=== PATIENT | male | born 1985 | race Caucasian/White ===

== ENCOUNTER 2018-08-22 08:49 | Emergency (ER) | payer BC ==
[2018-08-22] MEDS ORDERED: Lactated Ringers 1,000 ML IV ONE (09:22)
[2018-08-22] MEDS ORDERED: Sodium Chloride 0.9% 10 ML Syringe FLUSH PRN ×2 (09:22→09:29)
[2018-08-22] MEDS ORDERED: Iohexol 350 MG/ML 75 ML Bottle IVPUSH ONE (09:29)
[2018-08-22] MEDS ORDERED: Sodium Chloride 0.9% 100 ML IV SCH (09:30)
--- NOTE | 2018-08-22 09:30 | EDM.PDOC ---
ED HPI GENERAL MEDICAL PROBLEM - General Chief Complaint: Chest Pain Stated Complaint: RIB PAIN Time Seen by Provider: 08/22/18 09:04 Source of Information: Reports: Patient History Limitations: Reports: No Limitations - History of Present Illness INITIAL COMMENTS - FREE TEXT/NARRATIVE: 33-year-old male presents for evaluation and treatment of injuries sustained from a fall. Patient reports that he fell down approximately 1 or 2 stairs last evening. Reports that he was drinking alcohol. He states that he is now experiencing pain to the left upper quadrant, left flank, left mid back and left lower chest. He reports pain with range of motion and pain with deep breathing. Patient denies any head trauma. He denies any headaches, vision changes, nausea , vomiting, epistaxis, loose or missing teeth, neck pain, hematuria. Patient states that he "feels great "other than the left side. Patient reports that he normally drinks daily, about a 6 pack a day. Left Chest Pain Score (Numeric/FACES): 8 - Related Data Allergies Allergy/AdvReac Type Severity Reaction Status Date / Time seasonal allergies Allergy Hives Uncoded 08/22/18 09:00 Home Meds: Home Meds Ascorbic Acid [Vitamin C] 500 mg PO DAILY 08/22/18 [History] Cetirizine [ZyrTEC] 10 mg PO DAILY 08/22/18 [History] Ferrous Sulfate [Iron] 325 mg PO DAILY 08/22/18 [History] Fingolimod HCl [Gilenya] 0.5 mg PO DAILY 08/22/18 [History] Multivitamin [Multivitamins] 1 each PO DAILY 08/22/18 [History] Past Medical History Neurological History: Reports: MS - Past Surgical History Musculoskeletal Surgical History: Reports: Hip Replacement Social & Family History - Tobacco Use Smoking Status *Q: Current Every Day Smoker Years of Tobacco use: 20 Packs/Tins Daily: 0.2 - Caffeine Use Caffeine Use: Reports: None - Recreational Drug Use Recreational Drug Use: No Review of Systems - Review of Systems Review Of Systems: See Below Eyes: Denies: Vision Change Nose: Denies: Epistaxis Mouth/Throat: Denies: Loose Teeth Cardiovascular: Reports: Chest Pain (left lower chest) GI/Abdominal: Reports: Abdominal Pain (LUQ). Denies: Nausea, Vomiting Genitourinary: Denies: Hematuria Skin: Reports: Bruising Neurological: Denies: Dizziness, Headache, Syncope ED EXAM, GENERAL - Physical Exam Exam: See Below Exam Limited By: No Limitations General Appearance: Alert, WD/WN, No Apparent Distress Eye Exam: Bilateral Eye: EOMI, Normal Inspection, PERRL Ears: Normal External Exam, Normal Canal, Hearing Grossly Normal, Normal TMs Nose: Normal Inspection Throat/Mouth: Normal Inspection, Normal Lips, Normal Teeth, Normal Oropharynx, Normal Voice, No Airway Compromise Head: Atraumatic, Normocephalic Neck: Normal Inspection, Supple, Non-Tender, Full Range of Motion Respiratory/Chest: No Respiratory Distress, Lungs Clear, Normal Breath Sounds, Splinting, Other (tenderness to palpation to ribs 10-12 left lateral chest) Cardiovascular: Normal Peripheral Pulses, Regular Rate, Rhythm, No Murmur GI/Abdominal: Normal Bowel Sounds, Other (tenderness to palpation to the LUQ) Neurological: Alert, Oriented, Normal Cognition Psychiatric: Normal Affect, Normal Mood Skin Exam: Warm, Dry, Normal Color, Ecchymosis (ecchymosis to the left mid back around T8-t12 approximately 20cm in diameter) Course - Vital Signs Last Recorded V/S: Last Vital Signs Temp 98.6 F 08/22/18 08:58 Pulse 92 08/22/18 08:58 Resp 16 08/22/18 08:58 BP 136/93 H 08/22/18 08:58 Pulse Ox 96 08/22/18 08:58 - Orders/Labs/Meds Orders: Active Orders 24 hr Category Date Time Status Peripheral IV Care [RC] . DIRECTED Care 08/22/18 09:23 Ordered Sodium Chloride 0.9% [Normal Saline] 100 ml Med 08/22/18 09:30 Active IV ASDIRECTED Sodium Chloride 0.9% [Saline Flush] Med 08/22/18 09:22 Ordered 10 ml FLUSH ASDIRECTED PRN Sodium Chloride 0.9% [Saline Flush] Med 08/22/18 09:29 Active 10 ml FLUSH ONETIME PRN Peripheral IV Insertion Adult [OM.PC] Routine Oth 08/22/18 09:22 Ordered Medication Orders Sodium Chloride (Normal Saline) 100 mls @ 75 mls/hr IV ASDIRECTED CANDIDA Last Admin: 08/22/18 09:42 Dose: 75 mls/hr Sodium Chloride (Saline Flush) 10 ml FLUSH ASDIRECTED PRN PRN Reason: Keep Vein Open Last Admin: 08/22/18 09:40 Dose: 10 ml Sodium Chloride (Saline Flush) 10 ml FLUSH ONETIME PRN PRN Reason: IV FLUSH Last Admin: 08/22/18 09:42 Dose: 10 ml Meds: Medications Generic Name Dose Route Start Last Admin Trade Name Freq PRN Reason Stop Dose Admin Sodium Chloride 100 mls @ 75 mls/hr 08/22/18 09:30 08/22/18 09:42 Normal Saline IV 75 mls/hr ASDIRECTED CANDIDA Administration Sodium Chloride 10 ml 08/22/18 09:22 08/22/18 09:40 Saline Flush FLUSH 10 ml ASDIRECTED PRN Administration Keep Vein Open Sodium Chloride 10 ml 08/22/18 09:29 08/22/18 09:42 Saline Flush FLUSH 10 ml ONETIME PRN Administration IV FLUSH Discontinued Medications Generic Name Dose Route Start Last Admin Trade Name Freq PRN Reason Stop Dose Admin Lactated Ringer's 1,000 mls @ 999 mls/hr 08/22/18 09:22 08/22/18 09:52 Ringers, Lactated IV 08/22/18 10:22 999 mls/hr .BOLUS ONE Administration Iohexol 75 ml 08/22/18 09:29 08/22/18 09:40 Omnipaque IVPUSH 08/22/18 09:30 75 ml ONETIME ONE Administration - Radiology Interpretation Free Text/Narrative:: CT chest Technique: Multiple axial sections were obtained from above the lung apices inferiorly through the lung bases. Intravenous contrast was utilized. Comparison: No prior chest imaging is available. Findings: Mediastinum and hilar region show no adenopathy. No pericardial thickening is seen. No mediastinal hematoma is seen. No axillary adenopathy is seen. Lungs are clear. No acute parenchymal change is appreciated. Bone window settings were reviewed which show no discrete rib fracture. Incidental hemangioma is noted within the T9 vertebral body. No vertebral body compression deformities are seen. Reconstructed lateral views of the sternum appear unremarkable. Impression: 1. Incidental hemangioma within T9. 2. Nothing acute is appreciated on CT study of the chest. Diagnostic code #2 CT abdomen and pelvis Technique: Multiple axial sections were obtained from above the dome of the diaphragm inferiorly through the pubic symphysis. Intravenous contrast was utilized. No oral contrast has been given. Comparison: No prior abdominal imaging is available. Findings: Liver shows no focal parenchymal abnormality. Spleen appears within normal limits. Adrenal glands show no nodule. Pancreas is within normal limits. Kidneys show symmetric contrast enhancement and appear unremarkable. Gallbladder contains no calcified gallstones. Aorta shows no aneurysm. No retroperitoneal adenopathy is seen. No mesenteric abnormalities are identified. No pelvic mass or adenopathy is seen. Left hip prosthesis is noted. No acute osseous abnormality is appreciated. Mild disc space narrowing is noted at L5-S1. Appendix is seen and is felt to be normal in size. Delayed images show contrast excretion into both ureters which show no dilatation or obstruction. Contrast is noted within the bladder. Impression: 1. Nothing acute is identified on CT study of the abdomen and pelvis. - Re-Assessments/Exams Free Text/Narrative Re-Assessment/Exam: 08/22/18 10:[address] results with the patient. Will discharge home . Discharge instructions as documented. Departure - Departure Time of Disposition: 10:29 Disposition: Home, Self-Care 01 Condition: Fair Clinical Impression: Fall, Ecchymosis - Discharge Information *PRESCRIPTION DRUG MONITORING PROGRAM REVIEWED*: No *COPY OF PRESCRIPTION DRUG MONITORING REPORT IN PATIENT SERAFIN: No Instructions: Hematoma, [id number] Referrals: PCP,None [Primary Care Provider] - Forms: ED Department Discharge, ED Return to Work/School Form Additional Instructions: [id number] Tylenol or Motrin as needed for pain. Ice the area for additional pain relief. Expect to be sore the next 1-2 weeks. The first few days are normally the worst. Rest but did not be completely immobile, activity as tolerated. Follow-up with your primary care provider if your symptoms do not improve in 2 weeks. Please return to the ER if your symptoms change or worsen. - My Orders Last 24 Hours: My Active Orders 08/22/18 09:22 Sodium Chloride 0.9% [Saline Flush] 10 ml FLUSH ASDIRECTED PRN Peripheral IV Insertion Adult [OM.PC] Routine 08/22/18 09:23 Peripheral IV Care [RC] . DIRECTED 08/22/18 09:29 Sodium Chloride 0.9% [Saline Flush] 10 ml FLUSH ONETIME PRN 08/22/18 09:30 Sodium Chloride 0.9% [Normal Saline] 100 ml IV ASDIRECTED - Assessment/Plan Last 24 Hours: My Active Orders 08/22/18 09:22 Sodium Chloride 0.9% [Saline Flush] 10 ml FLUSH ASDIRECTED PRN Peripheral IV Insertion Adult [OM.PC] Routine 08/22/18 09:23 Peripheral IV Care [RC] . DIRECTED 08/22/18 09:29 Sodium Chloride 0.9% [Saline Flush] 10 ml FLUSH ONETIME PRN 08/22/18 09:30 Sodium Chloride 0.9% [Normal Saline] 100 ml IV ASDIRECTED
--- NOTE | 2018-08-22 10:23 | CT ---
CT chest Technique: Multiple axial sections were obtained from above the lung apices inferiorly through the lung bases. Intravenous contrast was utilized. Comparison: No prior chest imaging is available. Findings: Mediastinum and hilar region show no adenopathy. No pericardial thickening is seen. No mediastinal hematoma is seen. No axillary adenopathy is seen. Lungs are clear. No acute parenchymal change is appreciated. Bone window settings were reviewed which show no discrete rib fracture. Incidental hemangioma is noted within the T9 vertebral body. No vertebral body compression deformities are seen. Reconstructed lateral views of the sternum appear unremarkable. Impression: 1. Incidental hemangioma within T9. 2. Nothing acute is appreciated on CT study of the chest. Diagnostic code #2 CT abdomen and pelvis Technique: Multiple axial sections were obtained from above the dome of the diaphragm inferiorly through the pubic symphysis. Intravenous contrast was utilized. No oral contrast has been given. Comparison: No prior abdominal imaging is available. Findings: Liver shows no focal parenchymal abnormality. Spleen appears within normal limits. Adrenal glands show no nodule. Pancreas is within normal limits. Kidneys show symmetric contrast enhancement and appear unremarkable. Gallbladder contains no calcified gallstones. Aorta shows no aneurysm. No retroperitoneal adenopathy is seen. No mesenteric abnormalities are identified. No pelvic mass or adenopathy is seen. Left hip prosthesis is noted. No acute osseous abnormality is appreciated. Mild disc space narrowing is noted at L5-S1. Appendix is seen and is felt to be normal in size. Delayed images show contrast excretion into both ureters which show no dilatation or obstruction. Contrast is noted within the bladder. Impression: 1. Nothing acute is identified on CT study of the abdomen and pelvis. Diagnostic code #2
== END 2018-08-22 10:40 | disposition home or self-care (01) ==
LOC: JD.ED 08:49
DX: S20.222A Contusion of left back wall of thorax, initial encounter (principal); F17.210 Nicotine dependence, cigarettes, uncomplicated; Z79.899 Other long term (current) drug therapy; Z91.09 Other allergy status, other than to drugs and biological substances; W19.XXXA Unspecified fall, initial encounter
CPT/HCPCS: 71260; 74177; 96360; 99283; J7030; J7120; Q9967; 99284